=== PATIENT | male | born 1990 ===

== ENCOUNTER 2016-06-29 10:17 | Emergency (ER) | payer BC, OTHER ==
[2016-06-29 10:39] VITALS: BMI 40.1
[2016-06-29 10:42] VITALS: TEMP 98.4; O2SAT 97
[2016-06-29 11:37] VITALS: RESP 18
[2016-06-29] MEDS ORDERED: Ciprofloxacin 0.3% OPTH SOLN OS STA (11:57)
--- NOTE | 2016-06-29 12:18 | ED PDOC ---
Arrival/HPI - General Chief Complaint: Eye Problem Time Seen by Provider: 06/29/16 11:56 Historian: Patient - History of Present Illness Narrative History of Present Illness (Text): 06/29/16 12:15 25-year-old male presents today with foreign body sensation in the left eye since last night. Patient states he worked the overnight shift when he got home he went to take a shower and felt as though he had a foreign body sensation in the eye. Patient states he then flushed the eye with saline eye wash and was unable to relieve the sensation in the eye. Patient states the eyes and tearing is complaining of some blurry vision due to the tearing. He states he noticed some swelling to the upper eyelid. He denies fevers or chills. Patient states he wears contacts daily. Denies any recent trauma or injury. No other complaints Past Medical History - Provider Review Nursing Documentation Reviewed: Yes - Travel History Have you recently traveled outside [place] w/in the past 3 mons?: No - Infectious Disease Hx of Infectious Diseases: None - Tetanus Immunization Tetanus Immunization: Unknown - Cardiac Hx Cardiac Disorders: No - Pulmonary Hx Respiratory Disorders: Yes Hx Asthma: Yes - Neurological Hx Neurological Disorder: No - HEENT Hx HEENT Disorder: No - Renal Hx Renal Disorder: No - Endocrine/Metabolic Hx Endocrine Disorders: No - Hematological/Oncological Hx Blood Disorders: No - Integumentary Hx Dermatological Disorder: No - Musculoskeletal/Rheumatological Hx Musculoskeletal Disorders: No - Gastrointestinal Hx Gastrointestinal Disorders: No - Genitourinary/Gynecological Hx Genitourinary Disorders: No - Psychiatric Hx Psychophysiologic Disorder: No Hx Depression: No Hx Emotional Abuse: No Hx Physical Abuse: No Hx Substance Use: No - Surgical History Hx Tonsillectomy: Yes - Suicidal Assessment Feels Threatened In Home Enviroment: No Family/Social History - Physician Review Nursing Documentation Reviewed: Yes Family/Social History: Unknown Family HX Smoking Status: Never Smoked Hx Alcohol Use: Yes Frequency of alcohol use: Socially Hx Substance Use: No Hx Substance Use Treatment: No Allergies/Home Meds Allergies/Adverse Reactions: Allergies codeine Allergy (Verified 06/29/16 10:42) ITCHING ibuprofen Allergy (Verified 06/29/16 10:42) ITCHING Review of Systems - Review of Systems Constitutional: absent: Fatigue, Fevers Eyes: Vision Changes, Photophobia, Eye Pain Respiratory: absent: SOB, Cough Cardiovascular: absent: Chest Pain, Palpitations Gastrointestinal: absent: Abdominal Pain, Nausea, Vomiting Musculoskeletal: absent: Arthralgias, Back Pain, Neck Pain Neurological: absent: Headache Physical Exam Vital Signs Reviewed: Yes Vital Signs Temp Pulse Resp BP Pulse Ox 06/29/16 11:29 69 18 135/76 97 06/29/16 10:39 98.4 F 71 17 138/81 97 Temperature: Afebrile Blood Pressure: Normal Pulse: Regular Respiratory Rate: Normal Appearance: Positive for: Well-Appearing, Non-Toxic, Comfortable Pain Distress: None Mental Status: Positive for: Alert and Oriented X 3 - Systems Exam Head: Present: Swelling (minimal swelling to left upper eyelid; no erythema; non tender. ) Pupils: Present: PERRL Extroacular Muscles: Present: EOMI Conjunctiva: Present: Injected (+ left eye conjunctival injection; minimal small abrasion noted to the medial edge of the cornea; small white fb removed from upper eyelid. ) Mouth: Present: Moist Mucous Membranes Neck: Present: Normal Range of Motion Respiratory/Chest: Present: Clear to Auscultation, Good Air Exchange. No: Respiratory Distress, Accessory Muscle Use Cardiovascular: Present: Regular Rate and Rhythm, Normal S1, S2. No: Murmurs Neurological: Present: GCS=15, Speech Normal Skin: Present: Warm, Dry, Normal Color. No: Rashes Psychiatric: Present: Alert, Oriented x 3 Medical Decision Making ED Course and Treatment: 06/29/16 12:18 Patient is nontoxic well appearing in no distress unable to obtain visual acuity; pt can only see the E: he does not have his glasses or contacts with him. left Conjunctival injection noted, PERRLA, extraocular muscles intact, + small corneal abrasion to medial edge of cornea; there was a small white fb removed from upper eyelid. tetanus updated. pt wears contacts will start pt on ciloxan case discussed with dr. Ramos; will have patient f/u in the office today at 130- 2pm I've advised taking antibiotics as prescribed, following up with the eye doctor , returning immediately if symptoms worsen persist or if new concerning symptoms develop Patient verbalizes understanding of discharge instructions and need for immediate followup. all aspects of this case were discussed the attending of record. Impression: Conjunctivitis, corneal abrasion Cipro eyedrops: 2 drops to the affected eye every 2 hours while awake x 2 days then every 4 hours 5 days Followup with the eye doctor today 1:30-2PM Return immediately if symptoms worsen persist or if new symptoms develop; blurry vision, worsening eye pain, worsening redness or any other concerning symptoms develop. Follow up with the primary care physician within the next 2 days - Medication Orders Current Medication Orders: Discontinued Medications Ciprofloxacin (Ciloxan 0.3% Ophth Soln) 2 drop OS STAT STA Stop: 06/29/16 11:58 Tetanus/Reduced Diphtheria/Acell Pertussis (Boostrix Vaccine Inj) 0.5 ml IM .ONCE ONE Stop: 06/29/16 12:20 Disposition/Present on Arrival - Present on Arrival Any Indicators Present on Arrival: No History of DVT/PE: No History of Uncontrolled Diabetes: No Urinary Catheter: No History of Decub. Ulcer: No History Surgical Site Infection Following: None - Disposition Have Diagnosis and Disposition been Completed?: Yes Diagnosis: Corneal abrasion, Conjunctivitis Disposition: HOME/ ROUTINE Disposition Time: 12:15 Patient Plan: Discharge Patient Problems: Current Active Problems Problem Status Diagnosed Conjunctivitis Acute Corneal abrasion Acute Condition: GOOD Discharge Instructions (ExitCare): Conjunctivitis (ED), Corneal Abrasion (ED) Additional Instructions: Cipro eyedrops: 2 drops to the affected eye every 2 hours while awake x 2 days then every 4 hours 5 days Followup with the eye doctor today 1:30-2PM Return immediately if symptoms worsen persist or if new symptoms develop; blurry vision, worsening eye pain, worsening redness or any other concerning symptoms develop. Follow up with the primary care physician within the next 2 days Prescriptions: Ciprofloxacin 0.3% [Ciloxan 0.3% Ophth SOLN] 2 drop OS Q4H #1 bottle Referrals: Darcy Jin MD [Primary Care Provider] - Follow up with primary Meek Ramos [Staff Provider] - Follow up with primary Forms: WORK NOTE
[2016-06-29] MEDS ORDERED: TDAP Vaccine 0.5 mL Syr IM ONE (12:19)
[2016-06-29 13:05] VITALS: BP 133/71; PULSE 66
== END 2016-06-29 13:00 | disposition home or self-care (01) ==
LOC: ED 10:17
DX: S05.02XA Injury of conjunctiva and corneal abrasion without foreign body, left eye, initial encounter (principal); X58.XXXA Exposure to other specified factors, initial encounter; Y92.89 Other specified places as the place of occurrence of the external cause; H10.9 Unspecified conjunctivitis; Z23 Encounter for immunization

== ENCOUNTER 2016-07-07 20:36 | Emergency (ER) | payer BC ==
[2016-07-07 20:38] VITALS: BMI 40.1
[2016-07-07 20:42] VITALS: BP 144/98; PULSE 90; TEMP 99.2
[2016-07-07] MEDS ORDERED: Amoxicillin-Clav 875-125 mg Tab PO STA (21:09)
[2016-07-07] MEDS ORDERED: DiphenhydrAMINE 12.5 mg/5 ml LIQ UD (5 ml) PO STA (21:11)
--- NOTE | 2016-07-07 21:21 | ED PDOC ---
Arrival/HPI - General Chief Complaint: Medical Clearance Time Seen by Provider: 07/07/16 20:49 Historian: Patient - History of Present Illness Narrative History of Present Illness (Text): 07/07/16 21:05 Duke Mas is a 25 year old male who presents to the Emergency department complaining of sensation of vague swelling to right facial area for the past 2 days. Patient also reports some minimal discomfort when touching the area. Patient denies any history of recent trauma/fall, fever, rash, or any other complaints. Symptom Onset: Gradual Symptom Course: Unchanged Quality: Other (Vague) Activities at Onset: Rest, Light Context: Home Past Medical History - Provider Review Nursing Documentation Reviewed: Yes - Infectious Disease Hx of Infectious Diseases: None - Tetanus Immunization Tetanus Immunization: Unknown - Cardiac Hx Cardiac Disorders: No - Pulmonary Hx Respiratory Disorders: Yes Hx Asthma: Yes - Neurological Hx Neurological Disorder: No - HEENT Hx HEENT Disorder: No - Renal Hx Renal Disorder: No - Endocrine/Metabolic Hx Endocrine Disorders: No - Hematological/Oncological Hx Blood Disorders: No - Integumentary Hx Dermatological Disorder: No - Musculoskeletal/Rheumatological Hx Musculoskeletal Disorders: No - Gastrointestinal Hx Gastrointestinal Disorders: No - Genitourinary/Gynecological Hx Genitourinary Disorders: No - Psychiatric Hx Psychophysiologic Disorder: No Hx Depression: No Hx Emotional Abuse: No Hx Physical Abuse: No Hx Substance Use: Yes - Surgical History Hx Tonsillectomy: Yes - Anesthesia Hx Anesthesia: Yes Hx Anesthesia Reactions: No Hx Malignant Hyperthermia: No - Suicidal Assessment Feels Threatened In Home Enviroment: No Family/Social History - Physician Review Nursing Documentation Reviewed: Yes Family/Social History: No Known Family HX Smoking Status: Never Smoked Hx Alcohol Use: Yes Frequency of alcohol use: Socially Hx Substance Use: Yes Substance used: marijuana Hx Substance Use Treatment: No Allergies/Home Meds Allergies/Adverse Reactions: Allergies codeine Allergy (Verified 06/29/16 10:42) ITCHING ibuprofen Allergy (Verified 06/29/16 10:42) ITCHING Review of Systems - Physician Review All systems were reviewed & negative as marked: Yes - Review of Systems Constitutional: Normal. absent: Fevers Eyes: Normal ENT: Normal Respiratory: Normal Cardiovascular: Normal Gastrointestinal: Normal. absent: Abdominal Pain, Diarrhea, Nausea, Vomiting Genitourinary Male: Normal Musculoskeletal: Normal Skin: Other (+vague swelling to right facial area). absent: Rash Neurological: Normal. absent: Headache, Dizziness Endocrine: Normal Hemo/Lymphatic: Normal Psychiatric: Normal Physical Exam Vital Signs Reviewed: Yes Vital Signs Temp Pulse Resp BP Pulse Ox 07/07/16 20:41 99.2 F 90 18 144/98 H 97 Temperature: Afebrile Blood Pressure: Normal Pulse: Regular Respiratory Rate: Normal Appearance: Positive for: Well-Appearing, Non-Toxic, Comfortable Pain Distress: None Mental Status: Positive for: Alert and Oriented X 3 - Systems Exam Head: Present: Normocephalic, Swelling (Minimal swelling to right periauricular region, no overlying erythema, no palpable tenderness) Pupils: Present: PERRL Extroacular Muscles: Present: EOMI Conjunctiva: Present: Normal Ears: Present: Normal, NORMAL TM, Normal Canal. No: Erythema, TM Bulging, Fluid Mouth: Present: Moist Mucous Membranes Pharnyx: Present: Normal. No: ERYTHEMA, EXUDATE, TONSILS ENLARGED, Peritonsilar Swelling, Uvular Deviation, Muffled/Hoarse Voice, Strider, Soft Palate/Uvular Edema Nose (External): Present: Atraumatic Nose (Internal): Present: Normal Inspection Neck: Present: Normal Range of Motion. No: Meningeal Signs, MIDLINE TENDERNESS , Paraspinal Tenderness Respiratory/Chest: Present: Clear to Auscultation, Good Air Exchange. No: Respiratory Distress, Accessory Muscle Use Cardiovascular: Present: Regular Rate and Rhythm, Normal S1, S2. No: Murmurs Neurological: Present: GCS=15, CN II-XII Intact, Speech Normal Skin: Present: Warm, Dry, Normal Color. No: Rashes Psychiatric: Present: Alert, Oriented x 3, Normal Insight, Normal Concentration Medical Decision Making ED Course and Treatment: 07/07/16 21:05 Impression: 25 year old male complaining of vague right-sided facial swelling x2 days. Differential Diagnosis include but are not limited to: Plan: -- Augmentin -- Benadryl -- Reassess and disposition Progress Notes: - Medication Orders Current Medication Orders: Discontinued Medications Amoxicillin/Clavulanate Potassium (Augmentin 875 Mg-125 Mg Tab) 1 tab PO ONCE STA PRN Reason: Protocol Stop: 07/07/16 21:10 Last Admin: 07/07/16 21:37 Dose: 1 tab Diphenhydramine HCl (Benadryl) 25 mg PO ONCE STA Stop: 07/07/16 21:12 Last Admin: 07/07/16 21:37 Dose: 25 mg - Zeldaibe Statement The provider has reviewed the documentation as recorded by the Ceci Hawley Provider Attestation: All medical record entries made by the Ceci were at my direction and personally dictated by me. I have reviewed the chart and agree that the record accurately reflects my personal performance of the history, physical exam, medical decision making, and the department course for this patient. I have also personally directed, reviewed, and agree with the discharge instructions and disposition. Disposition/Present on Arrival - Present on Arrival Any Indicators Present on Arrival: No History of DVT/PE: No History of Uncontrolled Diabetes: No Urinary Catheter: No History of Decub. Ulcer: No History Surgical Site Infection Following: None - Disposition Have Diagnosis and Disposition been Completed?: Yes Diagnosis: Allergic reaction, Soft tissue infection Disposition: HOME/ ROUTINE Disposition Time: 22:09 Patient Plan: Discharge Condition: STABLE Additional Instructions: Take meds as prescribed/follow up with your doctor this week/If any worsening symptoms return to the emergency room Prescriptions: Amoxicillin/Clavulanate [Augmentin 875 MG-125 MG] 1 tab PO BID #20 tab DiphenhydrAMINE [Benadryl] 25 mg PO Q6 PRN #24 cap PRN Reason: Swelling Referrals: Darcy Jin MD [Primary Care Provider] - Follow up with primary
[2016-07-07 22:24] VITALS: RESP 16; O2SAT 98
== END 2016-07-07 22:24 | disposition home or self-care (01) ==
LOC: ED 20:36
DX: T78.40XA Allergy, unspecified, initial encounter (principal); L08.9 Local infection of the skin and subcutaneous tissue, unspecified